=== PATIENT | female | born 2000 | race Hispanic/Latino ===

== ENCOUNTER 2023-12-25 20:17 | Emergency (ER) | payer OTHER ==
[~2023-12-25] VITALS: Ht 160 cm; Wt 85.0 kg
[2023-12-25] MEDS ORDERED: PRENATAL VITAM1 EACH PO (20:40)
[2023-12-25] MEDS ORDERED: ondansetron HCL 4 MG/2 ML VIAL IV ONE (20:45)
[2023-12-25 20:50] LABS: BILIRUBIN, URINE NEGATIVE (negative); BLOOD/HGB, URINE MODERATE (Negative); KETONE, URINE NEGATIVE (Negative); LEUK ESTERASE, URINE NEGATIVE (negative); NITRITE, URINE NEGATIVE (negative)
[2023-12-25 20:56] LABS: BASOPHILS 0.7 % (0-2); EOSINOPHILS 1.1 % (0-6); HEMATOCRIT 39.6 % (35.0-50.0); HEMOGLOBIN 13.5 g/dL (12.0-18.0); LYMPHOCYTES 45.8 % (24-44); MCH 31.4 (27-36); MCHC 34.1 g/dl (30-36); MCV 92.2 fl (81-99); MONOCYTES 6.6 % (0-12); NEUTROPHILS 45.8 % (39-80); PLATELET COUNT 309 K/uL (140-440); RDW 12.9 (10.5-15.0)
[2023-12-25 21:01] LABS: BACTERIA, URINE RARE /hpf (negative); CASTS, URINE NONE SEEN \\lpf; COLLECTION TYPE, URINE CLEAN CATCH; CRYSTALS, URINE NONE SEEN (0-1+); EPITHELIAL CELLS, URINE SQUAMOUS 1+ /lpf (0-1+); REFLEX CULTURE, URINE No (No)
[2023-12-25 21:11] LABS: ALBUMIN 3.8 g/dL (3.4-5.0); ALBUMIN/GLOBULIN RATIO 0.93 (1.1-2.4); BILIRUBIN, TOTAL 0.3 ng/dL (0.2-1.0); BUN/CREATININE RATIO 25.37 (6.0-28.6); CALCIUM 9.2 mg/dL (8.5-10.1); CREATININE, SERUM 0.67 mg/dL (0.55-1.02); PROTEIN, TOTAL 7.9 g/dL (6.4-8.2)
[2023-12-25] MEDS ORDERED: KETOROLAC TROMETHAMINE 30 MG/ML VIAL IV ONE (21:15)
[2023-12-25] MEDS ORDERED: NAPROSYN500 MG PO (22:02)
[2023-12-25 22:39] VITALS: BP 112/77
== END 2023-12-25 22:41 | disposition home or self-care (01) ==
LOC: ED 20:17
PROVIDERS: Internal Medicine
DX: N94.6 Dysmenorrhea, unspecified (principal); Z32.02 Encounter for pregnancy test, result negative; Z87.59 Personal history of other complications of pregnancy, childbirth and the puerperium; Z79.899 Other long term (current) drug therapy
CPT/HCPCS: 36415; 76830; 76856; 80053; 81001; 84703; 85025; J1885; J2405

== ENCOUNTER 2025-05-09 11:23 | Emergency (ER) | payer MEDICARE, OTHER ==
[~2025-05-09] VITALS: Ht 160 cm; Wt 91.4 kg
[~2025-05-09 11:23] MED LIST: NAPROSYN500 MG PO; PRENATAL VITAM1 EACH PO
[2025-05-09 11:43] LABS: BLOOD/HGB, URINE LARGE (Negative); KETONE, URINE NEGATIVE (Negative); LEUK ESTERASE, URINE SMALL (negative); NITRITE, URINE NEGATIVE (negative)
[2025-05-09 11:49] LABS: CRYSTALS, URINE NONE SEEN (0-1+); EPITHELIAL CELLS, URINE SQUAMOUS 1+ /lpf (0-1+)
[2025-05-09 11:50] LABS: BACTERIA, URINE RARE /hpf (negative); CASTS, URINE NONE SEEN \\lpf; REFLEX CULTURE, URINE Yes (No)
[2025-05-09 11:53] LABS: BASOPHILS 0.6 % (0.1-1.2); EOSINOPHILS 2.0 % (0.7-5.8); LYMPHOCYTES 41.7 % (19.3-51.7); MCH 31.3 PG (25.6-32.2); MCHC 34.0 g/dL (32.2-35.5); MCV 92.2 fL (79.4-94.8); MONOCYTES 6.4 % (4.7-12.5); NEUTROPHILS 49.1 % (34.0-71.1); RBC 4.50 M/uL (3.93-5.22)
[2025-05-09 12:14] LABS: ALT (SGPT) 289.0 U/L (14-59); AST (SGOT) 126.0 U/L (15-37); GLOMERULAR FILTRATION RATE,EST 127.0 mL/min (>60); PROTEIN, TOTAL 8.2 g/dL (6.4-8.2); UREA NITROGEN 8.0 mg/dL (7-18)
[2025-05-09] MEDS ORDERED: MACROBID 100 M100 MG PO (13:51)
[2025-05-09 14:02] VITALS: BP 117/82
== END 2025-05-09 14:02 | disposition home or self-care (01) ==
LOC: ED 11:23
PROVIDERS: Emergency Medicine
DX: R10.32 Left lower quadrant pain (principal); N93.9 Abnormal uterine and vaginal bleeding, unspecified
CPT/HCPCS: 36415; 76830; 76856; 80053; 81001; 83690; 83735; 84703; 85025; 87088; 99284-25